=== PATIENT | female | born 1980 ===

== ENCOUNTER 2021-12-27 05:54 | Day surgery (SDC) | payer OTHER ==
[~2021-12-27] VITALS: Ht 160 cm; Wt 79.6 kg
[~2021-12-27 05:54] MED LIST: Acerola C500 MG PO; ERGO400 PO; HYDHCL25 PO; HYDPAM25 PO; PRENATAL PO; Percocet 5-3251 EACH PO
[2021-12-27] MEDS ORDERED: CYTOTEC200 MC1 BC (06:39)
[2021-12-27] MEDS ORDERED: MISOPROSTOL200 MCG VAG (06:40)
[2021-12-27 07:16] LABS: BASOPHILS ABSOLUTE AUTO 0.02 K/mm3 (0.00-0.23); BASOPHILS PERCENT AUTO 0 % (0-2); EOSINOPHILS ABSOLUTE AUTO 0.09 K/mm3 (0.00-0.68); EOSINOPHILS PERCENT AUTO 1 % (0-6); Hematocrit 35.7 % (33.0-51.0); Hemoglobin 12.4 g/dL (11.5-16.0); IMMATURE GRAN ABSOLUTE AUTO 0.03 K/mm3 (0.00-0.10); IMMATURE GRAN PERCENT AUTO 0 % (0-1); LYMPHOCYTES ABSOLUTE AUTO 2.78 K/mm3 (0.84-5.20); LYMPHOCYTES PERCENT AUTO 33 % (21-46); MONOCYTES ABSOLUTE AUTO 0.73 K/mm3 (0.16-1.47); MONOCYTES PERCENT AUTO 9 % (4-13); Mean Corpuscular HGB 31.9 pg (26.0-34.0); Mean Corpuscular HGB Conc 34.7 g/dL (31.5-36.5); Mean Corpuscular Volume 92 fL (80-100); Mean Platelet Volume 10.4 fL (9.1-12.4); NEUTROPHILS ABSOLUTE AUTO 4.69 K/mm3 (1.96-9.15); NEUTROPHILS PERCENT AUTO 56 % (41-73); Platelet Count 255 K/mm3 (150-400); RDW Coefficient Variation 13.1 % (11.7-14.2); Red Blood Cell Count 3.89 M/mm3 (3.80-5.20); White Blood Cell Count 8.34 K/mm3 (4.00-11.30)
--- NOTE | 2021-12-27 09:28 | NUR ---
Discharge instructions reviewed with patient. Patient verbalizes understanding. Copy given to patient to take home.
--- NOTE | 2021-12-27 09:32 | NUR ---
PT UP TO BATHROOM. STEADY GAIT
--- NOTE | 2021-12-27 09:40 | NUR ---
Discharge instructions reviewed with patient. Patient verbalizes understanding. Copy given to patient to take home. Small amount of blood noted on caryn pad. Discharged via wheelchair to private car for ride home.
== END 2021-12-27 09:50 | disposition home or self-care (01) ==
LOC: ORSCMMR 05:54 → ORD 07:30 → ORSCMMR 07:30
PROVIDERS: Obstetrics & Gynecology
PROC: 10D17ZZ Extraction of Products of Conception, Retained, Via Natural or Artificial Opening (ICD-10-PCS; principal; 2021-12-27 07:30)
DX: O02.1 Missed abortion (principal); F41.8 Other specified anxiety disorders; Z79.899 Other long term (current) drug therapy
CPT/HCPCS: 76998; 85025; 86850; 86900; 86901; 88305; J2250; J7120

== ENCOUNTER 2022-02-14 15:23 | Emergency (ER) | payer OTHER ==
[~2022-02-14] VITALS: Ht 160 cm; Wt 85.3 kg
[~2022-02-14 15:23] MED LIST changes: +CYTOTEC200 MC1 BC; +MISOPROSTOL200 MCG VAG
[2022-02-14] MEDS ORDERED: AMOCLA875 PO (16:20)
== END 2022-02-14 16:30 | disposition home or self-care (01) ==
LOC: ER 15:23
DX: S61.451A Open bite of right hand, initial encounter (principal); W55.01XA Bitten by cat, initial encounter
CPT/HCPCS: 99283

== ENCOUNTER → 2023-02-24 | Outpatient (CLI) | payer OTHER ==
[~2023-02-24] MED LIST changes: +AMOCLA875 PO
[2023-03-05 05:11] LABS: HPV GENOTYPE 16 Not Detected; HPV GENOTYPE 18 Not Detected; HPV HIGH RISK Not Detected; HPV SOURCE Vaginal
== END ==
LOC: LAB 16:31 → LAB SHORT 16:31
PROVIDERS: Obstetrics & Gynecology
DX: Z01.419 Encounter for gynecological examination (general) (routine) without abnormal findings (principal)
CPT/HCPCS: 87624; G0123

== ENCOUNTER → 2023-06-04 | Outpatient (CLI) | payer OTHER ==
[2023-06-04 15:22] LABS: BASOPHILS ABSOLUTE AUTO 0.04 K/mm3 (0.00-0.23); BASOPHILS PERCENT AUTO 0 % (0-2); EOSINOPHILS ABSOLUTE AUTO 0.05 K/mm3 (0.00-0.68); EOSINOPHILS PERCENT AUTO 0 % (0-6); Hematocrit 35.2 % (33.0-51.0); IMMATURE GRAN ABSOLUTE AUTO 0.14 K/mm3 (0.00-0.10); IMMATURE GRAN PERCENT AUTO 1 % (0-1); LYMPHOCYTES ABSOLUTE AUTO 2.09 K/mm3 (0.84-5.20); LYMPHOCYTES PERCENT AUTO 18 % (21-46); MONOCYTES ABSOLUTE AUTO 0.93 K/mm3 (0.16-1.47); MONOCYTES PERCENT AUTO 8 % (4-13); Mean Corpuscular HGB 31.4 pg (26.0-34.0); Mean Corpuscular HGB Conc 34.1 g/dL (31.5-36.5); Mean Corpuscular Volume 92 fL (80-100); Mean Platelet Volume 11.3 fL (9.1-12.4); NEUTROPHILS PERCENT AUTO 72 % (41-73); Platelet Count 258 K/mm3 (150-400); RDW Standard Deviation 43.6 fL (35.1-46.3); Red Blood Cell Count 3.82 M/mm3 (3.80-5.20); White Blood Cell Count 11.65 K/mm3 (4.00-11.30)
== END ==
LOC: LAB SHORT 09:46
PROVIDERS: Obstetrics & Gynecology
DX: O09.522 Supervision of elderly multigravida, second trimester (principal)
CPT/HCPCS: 82950; 85025

== ENCOUNTER 2023-08-21 21:48 | Inpatient (IN) | payer OTHER ==
[~2023-08-21] VITALS: Ht 160 cm; Wt 86.4 kg
[2023-08-21 22:08] VITALS: BP 129/81
[2023-08-21] MEDS ORDERED: Lactated Ringer's 1,000 ML IV SCH (23:10)
[2023-08-21 23:17] LABS: BASOPHILS ABSOLUTE AUTO 0.03 K/mm3 (0.00-0.23); BASOPHILS PERCENT AUTO 0 % (0-2); EOSINOPHILS ABSOLUTE AUTO 0.08 K/mm3 (0.00-0.68); EOSINOPHILS PERCENT AUTO 1 % (0-6); Hematocrit 33.7 % (33.0-51.0); Hemoglobin 11.9 g/dL (11.5-16.0); IMMATURE GRAN ABSOLUTE AUTO 0.08 K/mm3 (0.00-0.10); IMMATURE GRAN PERCENT AUTO 1 % (0-1); LYMPHOCYTES ABSOLUTE AUTO 2.52 K/mm3 (0.84-5.20); LYMPHOCYTES PERCENT AUTO 23 % (21-46); MONOCYTES ABSOLUTE AUTO 0.98 K/mm3 (0.16-1.47); MONOCYTES PERCENT AUTO 9 % (4-13); Mean Corpuscular HGB 31.7 pg (26.0-34.0); Mean Corpuscular HGB Conc 35.3 g/dL (31.5-36.5); Mean Corpuscular Volume 90 fL (80-100); Mean Platelet Volume 10.9 fL (9.1-12.4); NEUTROPHILS PERCENT AUTO 66 % (41-73); Platelet Count 219 K/mm3 (150-400); RDW Standard Deviation 42.4 fL (35.1-46.3); Red Blood Cell Count 3.75 M/mm3 (3.80-5.20); White Blood Cell Count 10.89 K/mm3 (4.00-11.30)
[2023-08-21] MEDS ORDERED: Lactated Ringer's 1,000 ML IV ONE (23:20)
[2023-08-21] MEDS ORDERED: CeFAZolin Sodium 2,000 MG in NS 100 ML IV SCH (23:20)
[2023-08-21] MEDS ORDERED: Metoclopramide HCl 5MG / ML 2ML Vial IV ONE (23:20)
[2023-08-21] MEDS ORDERED: Citric Acid/Sodium Citrate 30 ML BTL PO ONE (23:20)
[2023-08-21] MEDS ORDERED: Azithromycin 500 MG in NS 250 ML IV SCH (23:25)
[2023-08-22] VITALS (22 sets, daily range): BP systolic 90–144; BP diastolic 54–85
[2023-08-22] MEDS ORDERED: BUSP5 PO (00:09)
[2023-08-22] MEDS ORDERED: PRENATAL TABLE1 EAC2 PO (00:09)
[2023-08-22] MEDS ORDERED: FentaNYL Citrate 50 MCG/ML 2 ML Injection ONE (01:06)
[2023-08-22] MEDS ORDERED: Oxytocin 10 Unit / ML Vial ONE (01:36)
[2023-08-22] MEDS ORDERED: ePHEDrine Sulfate 50 MG/ML 1ML Injection ONE (01:40)
[2023-08-22] MEDS ORDERED: Phenylephrine HCl 100 MCG/ML-NS 10MLSYR (1MG/10ML) ONE (01:59)
[2023-08-22] MEDS ORDERED: Glycopyrrolate 0.2 MG/ML 5ML VIAL ONE (01:59)
[2023-08-22] MEDS ORDERED: Magnesium Hydroxide Conc 10 ML UDC PO PRN (02:55)
[2023-08-22] MEDS ORDERED: Methylergonovine Maleate 0.2MG / ML 1ML Amp IM PRN (02:55)
[2023-08-22] MEDS ORDERED: Metoclopramide HCl 10 MG Tab PO PRN (02:55)
[2023-08-22] MEDS ORDERED: OxyCODONE HCL 5 MG TAB PO PRN ×2 (02:55→03:00)
[2023-08-22] MEDS ORDERED: Misoprostol 200 MCG Tab PR PRN (02:55)
[2023-08-22] MEDS ORDERED: Lanolin Cream TOP PRN (03:00)
[2023-08-22] MEDS ORDERED: Ondansetron HCl 2 MG / ML 2ML Vial IV PRN (03:00)
[2023-08-22] MEDS ORDERED: HYDROmorphone HCl/Pf 1MG SYR IV PRN (03:00)
[2023-08-22] MEDS ORDERED: Ketorolac Tromethamine 30mg Vial IV SCH (03:00)
[2023-08-22] MEDS ORDERED: OXYTOCIN/RINGER'S LACTATE 500 ML IV SCH ×2 (03:00→03:15)
[2023-08-22] MEDS ORDERED: BusPIRone HCl 5 MG Tab PO PRN (03:05)
[2023-08-22] MEDS ORDERED: Simethicone 80 MG Chew PO PRN (03:05)
[2023-08-22] MEDS ORDERED: DiphenhydrAMINE HCL 25 MG Cap PO PRN (03:05)
[2023-08-22] MEDS ORDERED: Acetaminophen 500 MG Tab PO SCH (06:00)
[2023-08-22] MEDS ORDERED: Prenatal Vit/FE Fumarate/FA 1 Tab PO SCH (09:00)
[2023-08-22] MEDS ORDERED: Polyethylene Glycol 3350 17 gm PO SCH (09:00)
[2023-08-22 10:02] LABS: BASOPHILS ABSOLUTE AUTO 0.03 K/mm3 (0.00-0.23); BASOPHILS PERCENT AUTO 0 % (0-2); EOSINOPHILS ABSOLUTE AUTO 0.03 K/mm3 (0.00-0.68); EOSINOPHILS PERCENT AUTO 0 % (0-6); Hematocrit 30.2 % (33.0-51.0); Hemoglobin 10.6 g/dL (11.5-16.0); IMMATURE GRAN ABSOLUTE AUTO 0.09 K/mm3 (0.00-0.10); IMMATURE GRAN PERCENT AUTO 1 % (0-1); LYMPHOCYTES ABSOLUTE AUTO 1.58 K/mm3 (0.84-5.20); LYMPHOCYTES PERCENT AUTO 13 % (21-46); MONOCYTES ABSOLUTE AUTO 0.82 K/mm3 (0.16-1.47); MONOCYTES PERCENT AUTO 7 % (4-13); Mean Corpuscular HGB 31.8 pg (26.0-34.0); Mean Corpuscular HGB Conc 35.1 g/dL (31.5-36.5); Mean Corpuscular Volume 91 fL (80-100); Mean Platelet Volume 10.8 fL (9.1-12.4); NEUTROPHILS ABSOLUTE AUTO 10.14 K/mm3 (1.96-9.15); NEUTROPHILS PERCENT AUTO 80 % (41-73); Platelet Count 196 K/mm3 (150-400); RDW Coefficient Variation 13.2 % (11.7-14.2); RDW Standard Deviation 43.1 fL (35.1-46.3); Red Blood Cell Count 3.33 M/mm3 (3.80-5.20); White Blood Cell Count 12.69 K/mm3 (4.00-11.30)
--- NOTE | 2023-08-22 15:50 | NUR ---
Pt called RN to room stating she didn't feel good- that she felt lightheaded and nauseous. VSS. Pt reports that she has anxiety and that she thinks she may have had a little panic attack. States she has a RX for Buspar but doesn't take it and declines need for intervention. States she already called her to return and that usually these episodes pass on their own. Pt given Zofran, Toradol, and Tylenol at this time, as well as Sprite and saltines. and daughter back at bedside. Suggested that pt try and take a nap if able. Pt denies further needs at this time.
[2023-08-22] MEDS ORDERED: Ibuprofen 400 MG Tab PO SCH (16:00)
[2023-08-22] MEDS ORDERED: HydrOXYzine Pamoate 50 MG Cap PO SCH (21:00)
[2023-08-23 05:57] VITALS: BP 127/74
[2023-08-23 07:37] VITALS: BP 125/58
[2023-08-23 12:01] VITALS: BP 133/62
[2023-08-23 15:44] VITALS: BP 112/71
[2023-08-23 19:04] VITALS: BP 100/57
[2023-08-24 01:09] VITALS: BP 118/63
[2023-08-24 04:28] VITALS: BP 112/58
[2023-08-24 08:12] VITALS: BP 144/75
== END 2023-08-24 10:22 | disposition home or self-care (01) | DRG 785 ==
LOC: OBS 21:48 → BC 21:51 → OBS 22:57 → BC 22:58
PROVIDERS: Advanced Practice Midwife; Obstetrics & Gynecology; ADMIT Obstetrics & Gynecology
PROC: 10D00Z1 Extraction of Products of Conception, Low, Open Approach (ICD-10-PCS; principal; 2023-08-22)
PROC: 0UT70ZZ Resection of Bilateral Fallopian Tubes, Open Approach (ICD-10-PCS; 2023-08-22)
DX: O42.02 Full-term premature rupture of membranes, onset of labor within 24 hours of rupture (principal); O34.211 Maternal care for low transverse scar from previous cesarean delivery; O99.344 Other mental disorders complicating childbirth; Z37.0 Single live birth; F41.9 Anxiety disorder, unspecified; F41.0 Panic disorder [episodic paroxysmal anxiety]; F32.A Depression, unspecified; Z79.899 Other long term (current) drug therapy; Z3A.38 38 weeks gestation of pregnancy
CPT/HCPCS: 36415; 59025; 81003; 85025; 86850; 86900; 86901; 86923; 87210; 88302; A9270; J0690; J1885; J2371; J2405; J2590; J3010; J7120

== ENCOUNTER → 2024-07-11 | Outpatient (CLI) | payer OTHER ==
[~2024-07-11] MED LIST changes: +BUSP5 PO; +PRENATAL TABLE1 EAC2 PO
[2024-07-11 20:32] LABS: Bacterial Vaginosis PCR Negative (NEGATIVE); Candida Group, PCR NOT DETECTED (NOT DETECT); Candida glabrata-krusei, PCR NOT DETECTED (NOT DETECT)
== END ==
LOC: LAB 17:32 → LAB SHORT 17:32
PROVIDERS: Advanced Practice Midwife
DX: N76.0 Acute vaginitis (principal)
CPT/HCPCS: 81515